=== PATIENT | male | born 1945 | race Caucasian/White ===

== ENCOUNTER 2019-07-13 09:49 | Emergency (ER) | payer MEDICARE, SELFPAY ==
[2019-07-13 10:07] VITALS: BP 120/66; PULSE 70; RESP 16; TEMP 36.8; O2SAT 95
[2019-07-13 10:27] LABS: Influenza Control Valid (Valid)
--- NOTE | 2019-07-13 10:32 | ED.GENADULT ---
HPI - General Adult General Chief complaint: Unspecified Stated complaint: flu like symptoms Source: patient Mode of arrival: ambulatory History of Present Illness HPI narrative: This is a 73-year-old male patient with history of cough nonproductive with no shortness of breath no fever chills no nausea vomiting abdominal pain no chest tightness does have a history of dementia. And at the [facility] where he resides other is a.m. outbreak of influenza and was sent to be tested for influenza. Otherwise no body aches no fever chills no shortness of breath. Onset (ago): day(s) Severity: mild Related Data Home Medications Medication Instructions Recorded Confirmed citalopram [Celexa] See Rx Instructions .ROUTE .COMPLEX 07/13/19 07/13/19 desipramine See Rx Instructions .ROUTE .COMPLEX 07/13/19 07/13/19 donepezil See Rx Instructions .ROUTE .COMPLEX 07/13/19 07/13/19 memantine See Rx Instructions .ROUTE .COMPLEX 07/13/19 07/13/19 potassium chloride See Rx Instructions .ROUTE .COMPLEX 07/13/19 07/13/19 potassium chloride See Rx Instructions .ROUTE .COMPLEX 07/13/19 07/13/19 zolpidem See Rx Instructions .ROUTE .COMPLEX 07/13/19 07/13/19 Allergies Allergy/AdvReac Type Severity Reaction Status Date / Time No Known Allergies Allergy Verified 07/13/19 10:23 Review of Systems Review of Systems: All systems reviewed & are unremarkable except as noted in HPI and below PMFSH Past Medical History Medical History Dementia Social History Social History Gender identity (if verbalized by the patient): Male Exam Const: General: no acute distress and alert Nutritional Appearance: well nourished HENMT: Head: normal to inspection Eyes: Conjunctivae: conjunctivae normal Pupils: Equal, round and reactive pupils present Chest: Chest palpation & inspection: normal inspection of the chest and abnormal inspection of the chest Resp: Effort & Inspection: normal respiratory effort Cardio: Rate: regular rate Rhythm: regular rhythm GI: GI Palp: Yes Soft to palpation Skin: General skin exam: normal color Rashes: no rashes Neuro: General: patient oriented x3 Psych: Mental Status: mental status grossly normal Course Vital Signs Vital signs: Vital Signs Temperature 36.8 C 07/13/19 10:07 Pulse Rate 70 07/13/19 10:07 Respiratory Rate 16 07/13/19 10:07 Blood Pressure 120/66 07/13/19 10:07 Pulse Oximetry 95 07/13/19 10:07 Temperature 36.8 C 07/13/19 10:07 Pulse Rate 70 07/13/19 10:07 Respiratory Rate 16 07/13/19 10:07 Blood Pressure 120/66 07/13/19 10:07 Pulse Oximetry 95 07/13/19 10:07 Medical Decision Making Vital Signs Vital Signs: Vital Signs Temperature 36.8 C 07/13/19 10:07 Pulse Rate 70 07/13/19 10:07 Respiratory Rate 16 07/13/19 10:07 Blood Pressure 120/66 07/13/19 10:07 Pulse Oximetry 95 07/13/19 10:07 Temperature 36.8 C 07/13/19 10:07 Pulse Rate 70 07/13/19 10:07 Respiratory Rate 16 07/13/19 10:07 Blood Pressure 120/66 07/13/19 10:07 Pulse Oximetry 95 07/13/19 10:07 Lab Data Labs: Lab Results 07/13/19 Range/Units 10:01 Influenza Type A Ag Negative (Negative) Influenza Type B Ag Negative (Negative) Critical Care Time Critical Care Time Critical Care Time: No Discharge Plan Discharge Clinical Impression: Acute viral syndrome Patient Disposition: Home, Self-Care Condition: Stable Instructions: Antibiotic Form Additional Instructions: Advise drinking plenty of water, Tylenol or Motrin for body aches or fevers, can take Robitussin [id number] Thomas cough as needed, follow-up with primary care physician if symptoms persist or worsen. Prescriptions: No Action donepezil 10 mg tablet See Rx Instructions .ROUTE .COMPLEX RF: 0 citalopram [Celexa] 20 mg tablet See
[2019-07-13 10:38] VITALS: BP 120/56; PULSE 78; RESP 20; TEMP 36.8; O2SAT 95
== END 2019-07-13 10:39 | disposition home or self-care (01) ==
PROVIDERS: Emergency Provider Emergency Medicine
DX: B34.9 Viral infection, unspecified (principal)
CPT/HCPCS: 87804; 99282; 99283

== ENCOUNTER 2019-11-29 08:44 | Observation (INO) | payer MEDICARE, SELFPAY ==
--- NOTE | ~2019-11-29 | CT_ITS ---
EXAMINATION: CT brain wo con EXAM DATE: 11/29/2019 09:26 INDICATION: Confusion, altered mental status. Lethargy. TECHNIQUE: Spiral CT of the head was performed without contrast. Axial, coronal and sagittal images were reviewed. The dose-length product (DLP) for this examination was 605.33 mGy-cm. The exposure w as tailored according to patient size, and iterative reconstruction (ASIR) was used as additional dos e reduction technique. There is no prior study for comparison. 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 Punctate old bilater al basal ganglia lacunar infarctions. There is no acute intraparenchymal hemorrhage. No evidence of intraparenchymal brain mass lesion. No evidence of acute infarction. Please note that initial head CT has limited sensitivity for small or acute infarctions. There is mild periventricular and subcorti sandra hypodensity, nonspecific but probably related to small vessel ischemic disease. There is mild p rominence of the sulci and ventricles related to cerebral atrophy. There is intracranial carotid ar teriosclerosis. There are no extra-axial collections. There is no mass effect or midline shift. Fr ontal sinus, bone surgical changes, left lobe, orbital surgical changes with prosthetic lobe. Evidenc e of old left medial orbital wall fracture. Soft tissue is unremarkable. The visualized sinuses and mastoid air cells are well aerated. IMPRESSION: 1. 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 2. Chronic age related findings. 3. Frontal, left orbital surgical changes. Reviewed, dictated and finalized at location G.
--- NOTE | ~2019-11-29 | XR_ITS ---
EXAMINATION: XR chest 1V portable DATE: 11/29/2019 09:26 INDICATION: MS, lethargy and fatigue. Altered mental status and confusion. TECHNIQUE: frontal view of the chest was obtained. COMPARISON: None FINDINGS: Small lung volumes. No focal airspace opacities, pulmonary edema, pleural effusion or pneumothorax. T he cardiomediastinal silhouette is normal. Plantable group account director projects over the left pectoral region. IMPRESSION: 1. Small lung volumes. No acute cardiopulmonary disease. Reviewed, dictated and finalized at location A.
[2019-11-29 08:44] VITALS: BP 157/74; PULSE 60; RESP 16; TEMP 36.5; O2SAT 97
--- NOTE | 2019-11-29 08:50 | ED.WEAKNESS ---
HPI - Weakness General Chief complaint: Altered Mental Status Stated complaint: ambulance Source: patient Limitations: dementia History of Present Illness HPI Narrative: Pt arrived to us via EMS from a skilled nursing. the patient is usually up and alert have ready for breakfast, however, this morning he was not. They went to check on him. When they went into the room, he told them that he was feeling fairly weak and not normal. They called EMS and administered the patient's morning medicines. As per skilled nursing patient is prone to making up stories from time to time to fill in blanks. He did tell EMS that he took somebody else's prescription. However the NH states they do not believe this to be true. Patient denies feeling any pain and he states that he has no nausea no vomiting no chest pain no shortness of breath are no other issues he just feels weak. MD Complaint: generalized weakness Location: generalized Migration: none Severity: mild Related Data Home Medications Medication Instructions Recorded Confirmed citalopram [Celexa] See Rx Instructions .ROUTE .COMPLEX 07/13/19 07/13/19 desipramine See Rx Instructions .ROUTE .COMPLEX 07/13/19 07/13/19 donepezil See Rx Instructions .ROUTE .COMPLEX 07/13/19 07/13/19 memantine See Rx Instructions .ROUTE .COMPLEX 07/13/19 07/13/19 potassium chloride See Rx Instructions .ROUTE .COMPLEX 07/13/19 07/13/19 potassium chloride See Rx Instructions .ROUTE .COMPLEX 07/13/19 07/13/19 zolpidem See Rx Instructions .ROUTE .COMPLEX 07/13/19 07/13/19 Allergies Allergy/AdvReac Type Severity Reaction Status Date / Time No Known Allergies Allergy Verified 07/13/19 10:23 Review of Systems Constitutional: Constitutional: Denies chills, Reports fatigue, Denies fever(s) and Reports weakness Eyes: Eyes: Denies as per HPI, Denies no additional eye complaints, Denies change in vision and Denies photophobia ENT: Denies system reviewed and no additional complaints, except as documented, Denies as per HPI, Denies dysphagia, Denies vertigo, Denies dizziness, Denies epistaxis, Denies nasal congestion and Denies sore throat Cardiovascular: Cardiovascular: Denies as per HPI, Denies no additional cardiovascular complaints, Denies chest pain, Denies rapid heart rate, Denies radiating jaw, neck or arm pain and Denies slow heart rate Respiratory: Respiratory: Denies as per HPI, Denies no additional respiratory complaints, Denies chest congestion, Denies cough, Denies dyspnea and Denies wheezing Gastrointestinal: Gastrointestinal: Denies as per HPI, Denies no additional gastrointestinal complaints, Denies abdominal pain, Denies bloating, Denies constipation, Denies heartburn, Denies diarrhea, Denies nausea and Denies vomiting Musculoskeletal: Musculoskeletal: Denies no additional musculoskeletal complaints, Denies as per HPI, Denies back pain, Denies myalgias, Denies arthralgias, Denies joint swelling and Denies muscle cramps Neurologic: Denies system reviewed and no additional complaints, except as documented, Denies as per HPI, Denies confusion, Denies vertigo, Denies dizziness, Denies syncope, Denies headache(s), Denies focal weakness, Denies numbness and Denies weakness Psychiatric: Psychiatric: Denies no additional psychiatric complaints, Denies as per HPI, Denies anxiety, Denies depression, Denies homicidal ideation and Denies suicidal ideation Endocrine: Endocrine: Denies no additional endocrine complaints, Denies as per HPI, Denies excessive sweating, Denies fatigue, Denies polydipsia and Denies polyuria Hematologic/Lymphatic: Hematologic/Lymphatic: Denies no additional hematologic/lymphatic complaints, Denies as per HPI, Denies easy bleeding and Denies easy bruising PMF Past Medical History Medical History (Updated 11/29/19 @ 08:52 by Beth Causey MD) Dementia Hyperlipidemia Social History Social History Gender identity (if verbalized by the
--- NOTE | 2019-11-29 08:57 | ECG_ITS ---
Measurements Intervals [place] Rate: 61 P: 65 TN: 236 QRS: 41 QRSD: 141 T: 56 QT: 455 QTc: 458 Interpretive Statements SINUS RHYTHM WITH FIRST DEGREE AV BLOCK VENTRICULAR PREMATURE COMPLEX RIGHT BUNDLE BRANCH BLOCK BASELINE ARTIFACT- II, III, AVF, V1 ABNORMAL ECG Electronically Signed On 11-29-2019 9:46:58 CDT by Richard Mathew D.O.
[2019-11-29 09:06] LABS: Basophils Absolute Auto 0.07 K/mm3 (0.00-0.10); Basophils Percent Auto 0.8 % (0.0-1.0); Eosinophils Absolute Auto 0.46 K/mm3 (0.02-0.50); Eosinophils Percent Auto 5.1 % (1.0-6.0); Hematocrit 42.3 % (37.0-46.0); Hemoglobin 13.7 g/dL (12.4-15.3); Immature Granulocyte Absolute 0.01 K/mm3 (0.00-0.00); Immature Granulocyte Percent A 0.1 % (0.0-0.0); Lymphocytes Absolute Auto 2.53 K/mm3 (1.10-4.50); Lymphocytes Percent Auto 28.2 % (18.0-42.0); Mean Corpuscular HGB Conc 32.4 g/dL (32.0-36.0); Mean Corpuscular Hemoglobin 30.4 pg (27.0-31.0); Mean Corpuscular Volume 93.8 fL (78.0-102.0); Monocytes Absolute Auto 0.82 K/mm3 (0.10-0.90); Monocytes Percent Auto 9.2 % (2.0-11.0); Neutrophils Absolute Auto 5.1 K/mm3 (1.7-7.2); Neutrophils Percent Auto 56.6 % (50.0-70.0); Platelet Count Result 258 K/mm3 (150-420); Red Blood Count 4.51 M/mm3 (4.70-6.10); Red Cell Distribution Width 13.2 % (11.6-14.4)
[2019-11-29 09:07] LABS: Appearance Urine Clear (Clear); Bilirubin Urine Negative (Negative); Color Urine Yellow (Yellow); Glucose Urine UA Negative (Negative); Ketones Urine Negative (Negative); Leukocyte Esterase Ur Negative LEU/UL (Negative); Nitrate Urine Negative (Negative); Protein Urine Negative (Negative); Urobilinogen Urine 0.2 mg/dL (0.2-1.0); pH Urine 5.5 (5.0-8.0)
[2019-11-29 09:13] LABS: Add Urine Microscopic? YES; Blood Urine Trace (Negative); RBC Urine 0-2 /hpf (0-2); WBC Urine 0-3 /hpf (0-3)
[2019-11-29 09:14] LABS: Bacteria Urine None seen /hpf
[2019-11-29 09:16] LABS: Amphetamine Screen Urine Negative (Negative); Barbiturate Screen Urine Negative (Negative); Benzodiazepines Screen Urine Negative (Negative); Cannabinoid Screen Urine Negative (Negative); Cocaine Screen Urine Negative (Negative); Methadone Screen Urine Negative (Negative); Opiate Screen Urine Negative (Negative); Phencyclidine Screen Urine Negative (Negative)
[2019-11-29 09:53] LABS: Alanine Aminotransferase 21 U/L (16-63); Albumin Level 3.5 g/dL (3.4-5.0); Alkaline Phosphatase 114 U/L (46-116); Anion Gap 10.1 mmol/L (7-16); Aspartate Amino Transferase 26 U/L (15-37); Bilirubin,Total 0.8 mg/dL (0.00-1.00); Blood Urea Nitrogen 16 mg/dL (7-18); Calcium 9.5 mg/dL (8.5-10.1); Carbon Dioxide 32 mmol/L (21-32); Chloride 103 mmol/L (98-108); Estimated CRCL calculation 72 ml/min; Estimated Glomerular Filt Rate > 60; Glucose 94 mg/dL (70-99); Osmolality Calculated 293 mOsm/kg (285-295); Potassium 4.1 mmol/L (3.5-5.1); Sodium 141 mmol/L (136-145); Total Protein 7.4 g/dL (6.4-8.2); Troponin I < 0.02 ng/mL (0.00-0.056)
--- NOTE | 2019-11-29 10:39 | PC.NURSE ---
RN AND HYBRID CAR MECHANIC ASSISTED PT.TO GET UP FROM THE BED TO THE CHAIR TO ASSESS FOR WEAKNESS OR UNSTEADY GAIT. PT. WAS NOT STEADY AND NEEDED ASSISTANCE TO THE CHAIR AND VERBALIZES HE FEELS WEAK WHEN STANDING.
[2019-11-29 11:43] VITALS: BP 116/65; PULSE 84; RESP 14; O2SAT 99
[2019-11-29 12:00] VITALS: BP 103/55; PULSE 78; RESP 18; TEMP 36.6; O2SAT 96; BMI 36.0
--- NOTE | 2019-11-29 12:07 | PC.NURSE ---
Admitted for weakness, lethargy, patient reports was given a medication that was not his and not sure what it was, made him tired and more confused than normal, presents oriented to person and place, hx of dementia, oriented to room, call light system
--- NOTE | 2019-11-29 12:27 | PM.IMHP ---
H&P: HPI History of Present Illness Chief complaint: ambulance <NAVEEN Scott - Last Filed: 11/29/19 12:40> Narrative: Milan Carter Jr. is a 74 year old male that presented to the ED today with complaints altered mental status, fatigue and weakness. patient has a past medical history of hypertension, BPH, dementia, depression and HLD. according to patient staff was not able to wake him this morning so EMS was called. he did note that he felt more tired and fatigued this morning. According to the medical records patient noted that he took some body elses medication. according to residential periodically patient gets confused and make stories up and they do not believe he took the wrong medication. while in the ED ahead CT was completed with no new or acute infarcts. Chest x-ray was unremarkable. patient vital Signs 116/65, 84, 14, 99% on room air.Patient will stay overnight for observation. Patient denies SOB, CP, palpitation, extremity numbness, lightheadness, dizziness, constipation, diarrhea, chills or fever. . <NAVEEN Scott - Last Filed: 11/29/19 12:40> Review of Systems Review of Systems: Narrative: CONSTITUTIONAL : patient complains fatigue and weakness No weight loss, fever, chills, HEENT: Eyes: No diplopia or blurred vision. ENT: No earache, sore throat or runny nose. CARDIOVASCULAR: No pressure, squeezing, strangling, tightness, heaviness or aching about the chest, neck, axilla or epigastrium. RESPIRATORY: No cough, shortness of breath, PND or orthopnea. GASTROINTESTINAL: No nausea, vomiting or diarrhea. GENITOURINARY: No dysuria, frequency or urgency. MUSCULOSKELETAL: No muscle, back pain, joint pain or stiffness. SKIN: No change in skin, hair or nails. NEUROLOGIC: No paresthesias, fasciculations, seizures or weakness. PSYCHIATRIC: No disorder of thought or mood. ENDOCRINE: No heat or cold intolerance, polyuria or polydipsia. HEMATOLOGICAL: No easy bruising or bleeding. <NAVEEN Scott - Last Filed: 11/29/19 12:40> [facility] Past Medical History Medical History: Medical History (Updated 11/29/19 @ 12:35 by NAVEEN Scott) BPH (benign prostatic hyperplasia) Dementia Depression HLD (hyperlipidemia) Hyperlipidemia <NAVEEN Scott - Last Filed: 11/29/19 12:40> Social History Social History: Social History Smoking status: Former smoker Tobacco type: cigarettes Alcohol intake: former Substance use: never Gender identity (if verbalized by the patient): Male Spiritual care concerns: No <NAVEEN Scott - Last Filed: 11/29/19 12:40> Meds Home Medications and Allergies Home medications: Home Medications Medication Instructions Recorded Confirmed Type desipramine 50 mg PO DAILY 07/13/19 11/29/19 History donepezil 10 mg PO BID 07/13/19 11/29/19 History potassium chloride 20 meq PO BID 07/13/19 11/29/19 History zolpidem 10 mg PO HS PRN 07/13/19 11/29/19 History atorvastatin 20 mg PO DAILY 11/29/19 11/29/19 History finasteride 5 mg PO DAILY 11/29/19 11/29/19 History lisinopril-hydrochlorothiazide 1 tablet PO DAILY 11/29/19 11/29/19 History melatonin 5 mg PO HS PRN 11/29/19 11/29/19 History ff-hh-yfff-FA-herbal cmplx#190 1 tablet PO DAILY 11/29/19 11/29/19 History [Vitamin D3 Complete] quetiapine 50 mg PO HS 11/29/19 11/29/19 History tamsulosin 0.4 mg PO DAILY 11/29/19 11/29/19 History vitamin B complex [B 1 tablet PO DAILY 11/29/19 11/29/19 History Complex-Vitamin B12] <NAVEEN Scott - Last Filed: 11/29/19 12:40> Allergies/Adverse reactions: Allergies Allergy/AdvReac Type Severity Reaction Status Date / Time No Known Allergies Allergy Verified 11/29/19 09:30 <NAVEEN Scott - Last Filed: 11/29/19 12:40> Vital Signs Vital Signs - 24 hr 11/29/19 08:44 11/29/19 11:43 11/29/19 12:00 Temperature 97.
--- NOTE | 2019-11-29 13:00 | PC.NURSE ---
Patient up from bed, no assistance, used walker and SBA to get to bathroom, voided well, returned to bed, steady gait with use of walker
--- NOTE | 2019-11-29 14:00 | PC.NURSE ---
Patient denies needs, alert and oriented at this time, no n/v/d
[2019-11-29 15:49] VITALS: BP 120/39; PULSE 68; RESP 20; TEMP 36.9; O2SAT 95
[2019-11-29] MEDS: POTASSIUM CHLORIDE 20 MEQ TABLET PO (17:03)
[2019-11-29] MEDS: DONEPEZIL HCL 5 MG TABLET 10 MG PO (17:03)
--- NOTE | 2019-11-29 17:07 | PC.NURSE ---
pt up to chair for dinner, loc back to baseline for pt, no complaints at this time, ember set up
--- NOTE | 2019-11-29 19:40 | PC.NURSE ---
pt ambulated to bathroom with walker and sba, voided clear yellow urine, no c/o dizziness, steady gait, pt a&o x4
[2019-11-29] MEDS: QUEtiapine FUMARATE 25 MG TABLET 50 MG PO (20:32)
--- NOTE | 2019-11-29 20:35 | PC.NURSE ---
pt resting in bed watching tv, denies any dizziness, denies any needs at this time
--- NOTE | 2019-11-29 21:27 | PC.NURSE ---
pt resting in bed, denies any needs at this time, pt a&o x3
--- NOTE | 2019-11-29 22:46 | PC.NURSE ---
pt sleeping, respirations even and regular, no evidence of distress noted at this time.
[2019-11-29 23:09] VITALS: BP 123/44; PULSE 73; RESP 18; TEMP 37.1; O2SAT 92
--- NOTE | 2019-11-29 23:10 | PC.NURSE ---
pt assisted to bathroom, ambulated well with walker and sba, pt in stable condition, denies any dizziness or pain, pt a&0 x3
--- NOTE | 2019-11-30 00:56 | PC.NURSE ---
pt sleeping, no evidence of distress noted
[2019-11-30] MEDS: MELATONIN 5 MG TABLET PO (02:23)
--- NOTE | 2019-11-30 02:25 | PC.NURSE ---
pt reports difficulty staying asleep and keeps waking up, medication given see MAR, denies any other symptoms at this time
--- NOTE | 2019-11-30 03:20 | PC.NURSE ---
pt resting in bed with eyes closed, no evidence of distress noted at this time.
--- NOTE | 2019-11-30 04:33 | PC.NURSE ---
pt sleeping, respirations even and regular, no evidence of distress noted at this time.
[2019-11-30 04:49] LABS: Hematocrit 40.6 % (37.0-46.0); Hemoglobin 13.3 g/dL (12.4-15.3); Mean Corpuscular HGB Conc 32.8 g/dL (32.0-36.0); Mean Corpuscular Hemoglobin 30.2 pg (27.0-31.0); Mean Corpuscular Volume 92.1 fL (78.0-102.0); Mean Platelet Volume 9.4 fl (8.7-11.0); Platelet Count Result 243 K/mm3 (150-420); Red Blood Count 4.41 M/mm3 (4.70-6.10); Red Cell Distribution Width 12.5 % (11.6-14.4); White Blood Count 9.2 K/mm3 (4.8-10.8)
[2019-11-30 05:00] LABS: Blood Urea Nitrogen 17 mg/dL (7-18); Calcium 9.3 mg/dL (8.5-10.1); Carbon Dioxide 33 mmol/L (21-32); Chloride 107 mmol/L (98-108); Estimated CRCL calculation 67 ml/min; Estimated Glomerular Filt Rate > 60; Glucose 91 mg/dL (70-99); Osmolality Calculated 297 mOsm/kg (285-295); Sodium 143 mmol/L (136-145)
--- NOTE | 2019-11-30 06:20 | PC.NURSE ---
pt ambulated to bathroom with walker and sba, steady gait, no c/o dizziness or any other symptoms at this time
[2019-11-30 07:29] VITALS: BP 126/42; PULSE 58; RESP 20; TEMP 36.5; O2SAT 95
[2019-11-30] MEDS: VITAMIN B COMPLEX CAPSULE 1 CAP PO (09:10)
[2019-11-30] MEDS: lisinopriL 20 MG TABLET PO (09:10)
[2019-11-30] MEDS: POTASSIUM CHLORIDE 20 MEQ TABLET PO (09:10)
[2019-11-30] MEDS: DONEPEZIL HCL 5 MG TABLET 10 MG PO (09:10)
[2019-11-30] MEDS: hydroCHLOROthiazide 25 MG TABLET PO (09:10)
[2019-11-30] MEDS: FINASTERIDE 5 MG TABLET PO (09:10)
[2019-11-30] MEDS: ATORVASTATIN 10 MG TABLET 20 MG PO (09:10)
[2019-11-30] MEDS: TAMSULOSIN HCL 0.4 MG CAPSULE PO (09:11)
--- NOTE | 2019-11-30 10:51 | PM.DS ---
DS: Admitting Diagnosis Admitting Diagnosis Admitting Diagnosis: Major depressive disorder, single episode, unspecified DS: Discharge Diagnosis Discharge Diagnosis (1) Depression: Code(s): F32.9 - Major depressive disorder, single episode, unspecified Status: Acute Assessment and Plan: continue desipramine (2) BPH (benign prostatic hyperplasia): Code(s): N40.0 - Benign prostatic hyperplasia without lower urinary tract symptoms Status: Acute Assessment and Plan: continue Flomax and Proscar (3) Hypertension: Code(s): I10 - Essential (primary) hypertension Status: Acute Assessment and Plan: stable continue lisinopril hydrochlorothiazide continue to monitor vital signs will adjust medication as needed (4) Dementia: Code(s): F03.90 - Unspecified dementia without behavioral disturbance Status: Acute Assessment and Plan: continued onepezil (5) Weakness: Code(s): R53.1 - Weakness Status: Acute Assessment and Plan: patient condition has improved (6) AMS (altered mental status): Code(s): R41.82 - Altered mental status, unspecified Status: Acute Assessment and Plan: Possibly secondary to medication CT of the head does indicate any new acute infarcts continue neuro checks will continue to monitor (7) HLD (hyperlipidemia): Code(s): E78.5 - Hyperlipidemia, unspecified Status: Acute Assessment and Plan: continue statins DS: Summary Hospital Course Hospital Course: This patient was admitted yesterday due to weakness according to patient he believes that he was being overmedicated or given the wrong medication at his [facility] which house mentally delayed residents. to patient he was more weak, fatigued and lethargic yesterday when staff came to his room. patient was admitted 24H observation due to his weakness. He condition has improved and he will discharge today. Patient admits he does feel better, he is not ready to discharge because he does not like the place where he resides. medically the patient is stable. Patient able to tolerate all meals , slept well and ambulate at baseline. Patient denies SOB, CP, palpitation, extremity numbness, lightheadness, dizziness, constipation, diarrhea, chills or fever. Patient agree that they are ready for discharge and discharge plan. Time Spent with Patient Time attestation: Total time spent providing and/or coordinating discharge services: Exam Narrative: Exam Narrative: General: A well-developed, well-nourished male sitting up in bed no acute distress. HEENT: Normocephalic, atraumatic. anophthalmia of the left eye. Oropharynx clear. Neck: Supple. Respiratory: Lungs are clear to auscultation bilaterally. Cardiovascular: Regular rate and rhythm with S1-S2. Gastrointestinal: Abdomen is soft, nontender, and nondistended with positive bowel sounds. No organomegaly. Skin: Warm, dry, and slightly pale.. No rash or lesions on limited exam. Extremities: No cyanosis, clubbing, or edema. Radial and pedal pulses intact. Neurological: Alert. Cranial nerves 2-12 are grossly intact. No gross focal deficits to casual conversation. Psychiatric: Pleasant and cooperative with normal mood and affect. Judgment and insight intact. CONSTITUTIONAL :No weight loss, fever, chills, weakness or fatigue.: HEENT: Eyes: No diplopia or blurred vision. ENT: No earache, sore throat or runny nose. CARDIOVASCULAR: No pressure, squeezing, strangling, tightness, heaviness or aching about the chest, neck, axilla or epigastrium. RESPIRATORY: No cough, shortness of breath, PND or orthopnea. GASTROINTESTINAL: No nausea, vomiting or diarrhea. GENITOURINARY: No dysuria, frequency or urgency. MUSCULOSKELETAL: No muscle, back pain, joint pain or stiffness. SKIN: No change in skin, hair or nails. NEUROLOGIC: No paresthesias, fasciculations, seizures
== END 2019-11-30 12:15 ==
LOC: CHSED 11:09 → CHS2ND 11:09
PROVIDERS: Nurse Practitioner; Admitting Provider Emergency Medicine; Emergency Provider Emergency Medicine; Visit Provider Emergency Medicine
DX: R41.82 Altered mental status, unspecified (principal); R53.1 Weakness; F32.9 Major depressive disorder, single episode, unspecified; N40.0 Benign prostatic hyperplasia without lower urinary tract symptoms; I10 Essential (primary) hypertension; F03.90 Unspecified dementia, unspecified severity, without behavioral disturbance, psychotic disturbance, mood disturbance, and anxiety; E78.5 Hyperlipidemia, unspecified; Z79.899 Other long term (current) drug therapy
CPT/HCPCS: 36415; 70450; 71045; 80048; 80053; 80307; 81001; 83605; 84484; 85025; 85027; 93005; 99283; 99285; A9270; G0378

== ENCOUNTER 2021-03-28 14:46 | Emergency (ER) | payer MEDICARE, SELFPAY ==
--- NOTE | ~2021-03-28 | CT_ITS ---
EXAMINATION: CT abdomen pelvis w con DATE: 03/28/2021 18:13 INDICATION: Altered mental status. Elevated white blood cell count. TECHNIQUE: Computed tomography (CT) of the abdomen and pelvis was performed with 100 cc Omnipaque 350 intravenous contrast. The dose-length product was 1022.86 mGy-cm. Automated exposure control and ite rative reconstruction technique were employed. COMPARISON: None. FINDINGS: There is bibasilar dependent atelectasis. Heart size is normal. No significant pleural or p ericardial effusion. There is dependent atelectasis. Gallbladder is distended. The liver, spleen, oliva creas, adrenal glands and left kidney are unremarkable. There is a subcentimeter hypodensity of the r ight kidney, too small to characterize, although statistically likely benign cysts. Nonobstructive jessa wel gas pattern. Moderate fecal loading of the rectum and sigmoid colon. No evidence for diverticulit is or appendicitis. No free air or free fluid. Enlarged prostate gland. There are calcified granuloma s of the liver and spleen.Severe lumbar spondylosis. There is a T12 superior endplate compression fra cture, likely chronic. There is osteoarthritis of the hips. IMPRESSION: 1. Mildly distended gallbladder. No definite stones. No secondary findings to suggest cholecystitis. 2: Enlarged prostate gland. Reviewed, dictated and finalized at location A. IMPRESSION: 1. Mildly distended gallbladder. No definite stones. No secondary findings to s uggest cholecystitis. 2: Enlarged prostate gland.
--- NOTE | ~2021-03-28 | XR_ITS ---
EXAMINATION: XR chest 1V portable 03/28/2021 15:31 INDICATION: History of dementia. TIA. Former smoker. PROCEDURE: AP portable chest COMPARISON: 11/29/2019 FINDINGS: The lungs are clear. The cardiomediastinal silhouette is within normal limits. There are no pleural effusions. There is no pneumothorax suspected. IMPRESSION: 1: NO ACUTE CARDIOPULMONARY DISEASE. Reviewed, dictated and finalized at location A.
--- NOTE | ~2021-03-28 | CT_ITS ---
EXAMINATION: CT brain wo con DATE: 03/28/2021 15:27 INDICATION: Status post fall. Dementia. TECHNIQUE: Computed tomography (CT) of the head was performed without intravenous contrast. The dose- length product was 605.33 mGy-cm. Automated exposure control and iterative reconstruction technique w ere employed. COMPARISON: CT dated 11/29/2019 FINDINGS: No acute intracranial hemorrhage, infarction, mass or mass effect. No ventriculomegaly or m idline shift. Basilar cisterns are patent. 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 Pun ctate bilateral lacunar infarctions. 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 Sinuses are pneumatized. Ma stoids are pneumatized. No acute cranial fracture. IMPRESSION: 1. No acute intracranial abnormality. Reviewed, dictated and finalized at location A.
[2021-03-28 14:55] VITALS: BP 96/62; PULSE 87; RESP 18; TEMP 37.1; O2SAT 95
--- NOTE | 2021-03-28 15:07 | ECG_ITS ---
Measurements Intervals [place] Rate: 77 P: 37 [place]: 206 QRS: -18 QRSD: 130 T: 14 QT: 396 QTc: 450 Interpretive Statements SINUS RHYTHM WITH MARKED RHYTHM IRREGULARITY, POSSIBLE NON-CONDUCTED PAC, SA BLOCK, AV BLOCK, OR SINUS PAUSE FIRST DEGREE AV BLOCK RIGHT BUNDLE BRANCH BLOCK BASELINE ARTIFACT- I, II, III, AVR, AVL, AVF, V4-V6 ABNORMAL ECG Electronically Signed On 03-28-2021 16:38:46 CDT by Richard Mathew D.O.
--- NOTE | 2021-03-28 15:36 | ED.FALL ---
HPI - Fall General Chief Complaint: Fall Stated Complaint: fall Source: old records reviewed Mode of arrival: other (NH report) Limitations: dementia History of Present Illness HPI Narrative: 75-year-old male with history of dementia per EMS and snf had an unwitnessed fall prior to arrival. Patient was found on the ground. Patient is alert to person states he did not fall. States he ate breakfast and uses a walker for ambulation. No complaints currently. complaint: fall Related Data Home Medications Medication Instructions Recorded Confirmed desipramine 50 mg PO DAILY 07/13/19 11/29/19 donepezil 10 mg PO BID 07/13/19 11/29/19 potassium chloride 20 meq PO BID 07/13/19 11/29/19 zolpidem 10 mg PO HS PRN 07/13/19 11/29/19 Vitamin D3 Complete 1 tablet PO DAILY 11/29/19 11/29/19 atorvastatin 20 mg PO DAILY 11/29/19 11/29/19 finasteride 5 mg PO DAILY 11/29/19 11/29/19 lisinopril-hydrochlorothiazide 1 tablet PO DAILY 11/29/19 11/29/19 melatonin 5 mg PO HS PRN 11/29/19 11/29/19 quetiapine 50 mg PO HS 11/29/19 11/29/19 tamsulosin 0.4 mg PO DAILY 11/29/19 11/29/19 vitamin B complex [B 1 tablet PO DAILY 11/29/19 11/29/19 Complex-Vitamin B12] Allergies Allergy/AdvReac Type Severity Reaction Status Date / Time No Known Allergies Allergy Verified 11/29/19 09:30 Review of Systems Review of Systems: ROS unobtainable: Yes unobtainable due to mental status (dementia) [facility] Past Medical History Medical History BPH (benign prostatic hyperplasia) Dementia Depression HLD (hyperlipidemia) Hyperlipidemia Social History Social History Smoking status: Former smoker Tobacco type: cigarettes Alcohol intake: former Substance use: never Gender identity (if verbalized by the patient): Male Spiritual care concerns: No Exam Narrative: General: alert, afebrile, answering questions intermittently Head: normocephalic, atraumatic Eyes: R eye without injection EOMI; 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 ENT: dry mucous membranes, oropharynx patent, no rhinorrhea Neck: supple, trachea midline Chest: equal chest rise bilaterally, no chest wall trauma noted Lungs: clear to auscultation bilaterally, respirations unlabored CV: regular rate, no MELYSSA B, calf size equal bilaterally Abd: soft, non-distended, non-tender, no guarding EXT: no deformity noted, moving BUE equally; BLE with extensor contractions Skin: warm, dry, no rashes; no pressure sores Neuro: alert, answering questions, no dysarthria Psych: affect appropriate; no delirium noted Course Vital Signs Vital signs: Vital Signs Temperature 37.1 C 03/28/21 14:55 Pulse Rate 87 03/28/21 14:55 Respiratory Rate 18 03/28/21 14:55 Blood Pressure 96/62 L 03/28/21 14:55 Pulse Oximetry 95 03/28/21 14:55 Temperature 37.1 C 03/28/21 14:55 Pulse Rate 67 03/28/21 16:00 Respiratory Rate 18 03/28/21 16:00 Blood Pressure 128/80 03/28/21 16:00 Pulse Oximetry 97 03/28/21 16:00 MDM - Fall MDM Narrative Medical decision making narrative: 75-year-old male with unwitnessed fall this morning prior to arrival patient with no complaint dementia alert and oriented x1 knows he is in the hospital states he did not fall that he had a full breakfast. Patient arrives with a pulse of 87 blood pressure 96/62 afebrile with no signs of trauma. No hematoma no bruising, no deformities noted. Differential Diagnosis Differential diagnosis: Likely syncope and other (Fall, sepsis, electrolyte disorder, dehydration, mechanical fall) Medical Records Attestation: I reviewed the patient's medical records. Lab Data Attestation: I reviewed the patient's lab results. Lab results narrative: WBC elevated at 15.7, electrolytes are normal, creatinine is 1.10 which is patient's baseline, IV fluids infusing. Glucose is 89, troponin is negative,UA negative for infection, no evidence
[2021-03-28] MEDS: SODIUM CHLORIDE 0.9% IV 1,000 ML 999 ML IV CONT (15:37)
[2021-03-28 15:47] LABS: Basophils Absolute Auto 0.1 K/mm3 (0.0-0.1); Basophils Percent Auto 0.3 % (0.2-1.2); Eosinophils Absolute Auto 0.1 K/mm3 (0-0.3); Eosinophils Percent Auto 0.3 % (0-4.4); Hematocrit 41.7 % (42.0-52.0); Hemoglobin 14.1 g/dL (14.0-18.0); Immature Granulocyte Absolute 0.04 K/mm3 (0.00-0.031); Immature Granulocyte Percent A 0.3 % (0-0.5); Lymphocytes Absolute Auto 1.11 K/mm3 (0.9-3.2); Lymphocytes Percent Auto 7.1 % (18.3-44.2); Mean Corpuscular HGB Conc 33.8 g/dl (32-36); Mean Corpuscular Hemoglobin 30.9 pg (26-34); Mean Corpuscular Volume 91.4 fl (80-100); Mean Platelet Volume 10.4 fl (7.4-10.4); Monocytes Absolute Auto 1.2 K/mm3 (0.1-0.6); Monocytes Percent Auto 7.8 % (2.6-8.5); Neutrophils Absolute Auto 13.2 K/mm3 (1.3-6.7); Neutrophils Percent Auto 84.2 % (45.5-73.1); Platelet Count Result 308 k/mm3 (150-375); Red Blood Count 4.56 M/mm3 (4.6-6.20); Red Cell Distribution Width 13.2 % (11.5-14.5); White Blood Count 15.7 K/mm3 (4.5-10.0)
[2021-03-28 15:59] LABS: Prothrombin Time 13.1 Seconds (11.1-14.7)
[2021-03-28 16:00] VITALS: BP 128/80; PULSE 67; RESP 18; O2SAT 97
[2021-03-28 16:02] LABS: Alanine Aminotransferase 13 U/L (4-50); Albumin Level 3.9 g/dL (3.5-5.1); Alkaline Phosphatase 120 U/L (38-126); Anion Gap 10 mmol/L (8-16); Aspartate Amino Transferase 26 U/L (17-59); Bilirubin,Total 0.9 mg/dL (0.2-1.3); Blood Urea Nitrogen 16 mg/dL (9-20); Carbon Dioxide 25 mmol/L (22-30); Chloride 105 mmol/L (98-107); Estimated CRCL calculation 59 ml/min; Estimated Glomerular Filt Rate > 60; Glucose 89 mg/dL (65-110); Magnesium 2.4 mg/dL (1.6-2.3); Potassium 4.3 mmol/L (3.4-5.0); Sodium 140 mmol/L (137-145)
[2021-03-28 16:13] LABS: Troponin I < 0.012 ng/mL (0.000-0.034)
[2021-03-28 16:39] LABS: Add Urine Microscopic? YES; Appearance Urine Cloudy (Clear); Bilirubin Urine Negative (Negative); Blood Urine Negative (Negative); Color Urine Yellow (Yellow); Glucose Urine UA Negative (Negative); Ketones Urine Negative (Negative); Leukocyte Esterase Ur Negative LEU/UL (Negative); Mucus Urine Rare /lpf; Nitrate Urine Negative (Negative); Protein Urine 1+ mg/dL (Negative); Specific Grav Ur 1.012 (1.001-1.035); Squamous Epithelial Cell Urine Rare /hpf (Few); WBC Urine 0-3 /hpf
[2021-03-28 16:47] LABS: Lactic Acid Reflex 1.5 mmol/L (0.7-2.1)
[2021-03-28 19:05] LABS: Troponin I < 0.012 ng/mL (0.000-0.034)
--- NOTE | 2021-03-28 19:36 | PC.NURSE ---
Pt posterior skin examined by this RN and Ed MD. no wounds or breakdown noted.
== END 2021-03-29 02:50 ==
PROVIDERS: Emergency Provider Emergency Medicine
DX: Z04.3 Encounter for examination and observation following other accident (principal); F03.90 Unspecified dementia, unspecified severity, without behavioral disturbance, psychotic disturbance, mood disturbance, and anxiety; N40.0 Benign prostatic hyperplasia without lower urinary tract symptoms; E78.5 Hyperlipidemia, unspecified; F32.9 Major depressive disorder, single episode, unspecified; R94.31 Abnormal electrocardiogram [ECG] [EKG]; I44.0 Atrioventricular block, first degree; I45.10 Unspecified right bundle-branch block; W19.XXXA Unspecified fall, initial encounter
CPT/HCPCS: 36415; 70450; 71045; 74177; 80053; 81001; 83605; 83735; 84484; 85025; 85610; 87040; 93005; 96374; 99284; J7030; Q9967